=== PATIENT | male | born 1945 | race Caucasian/White ===

== ENCOUNTER 2020-07-24 15:24 | Inpatient (IN) | payer MEDICARE, OTHER ==
[2020-07-24 16:22] LABS: Basophils # (A) 0.1 k/uL (0-0.2); Basophils % (A) 1 %; Eosinophils # (A) 0.2 k/uL (0-0.7); Eosinophils % (A) 2 %; HCT 47.4 % (39.0-53.0); HGB 15.9 gm/dL (13.0-17.5); Lymphocytes # (A) 1.2 k/uL (1.0-4.8); Lymphocytes % (A) 12 %; MCH 30.5 pg (25.0-35.0); MCHC 33.6 g/dL (31.0-37.0); MCV 90.6 fL (80.0-100.0); Mean Platelet Volume 7.4; Monocytes # (A) 0.6 k/uL (0-1.0); Monocytes % (A) 6 %; Neutrophils % (A) 78 %; Platelet Count 230 k/uL (150-450); RBC 5.23 m/uL (4.30-5.90); RDW 12.8 % (11.5-15.5); WBC 10.3 k/uL (3.8-10.6)
[2020-07-24 16:30] LABS: Potassium 3.9 mmol/L (3.5-5.1)
[2020-07-24 16:31] LABS: ALT 31 U/L (4-49); AST 40 U/L (17-59); African American GFR (CKD) >90 (>60 ml/min/1.73 sqM); Albumin 4.9 g/dL (3.5-5.0); Alkaline Phosphatase 60 U/L (38-126); Anion Gap 12 mmol/L; Blood Urea Nitrogen 35 mg/dL (9-20); Calcium 9.3 mg/dL (8.4-10.2); Carbon Dioxide 25 mmol/L (22-30); Chloride 103 mmol/L (98-107); Glucose 189 mg/dL (74-99); Non-African American GFR(CKD) 79 (>60 ml/min/1.73 sqM); Partial Thromboplastin Time 24.8 sec (22.0-30.0); Prothrombin Time 10.7 sec (9.0-12.0); Sodium 140 mmol/L (137-145); Total Protein 7.6 g/dL (6.3-8.2)
--- NOTE | 2020-07-24 16:50 | ED ---
Psych HPI - General Chief Complaint: Psychiatric Symptoms Stated Complaint: Hallucinations Time Seen by Provider: 07/24/20 15:42 Source: patient, family Mode of arrival: ambulatory - History of Present Illness Initial Comments: Patient is a 75-year-old male, with history of hypertension, presenting to the emergency department with his daughter over complaints of hallucinations. Patient states that he called the social services several times yesterday and again today because he was seeing people in his house. Patient states that there was other individuals "drinking things in his house and also laying in his bed up." Police investigated each time and there was nobody else in the household. Patient mentioned an ex-girlfriend who has been "giving him some trouble." He would not elaborate on this. He denies any suicidal or homicidal thoughts. He admits to occasional alcohol use, marijuana use, no other drug use. Her daughter states that he has never had this issue in the past. Denies any new medications. Denies any falls or trauma. There are no further complaints at t his time. Upon arrival to the ER, his vital signs are stable. - Related Data Home Medications Medication Instructions Recorded Confirmed Cider Vinegar [Apple Cider Vinegar] 600 mg PO DAILY 07/24/20 07/24/20 Garcinia Cambogia (Unknown 1 tab PO DAILY 07/24/20 07/24/20 Strength) Levothyroxine Sodium [Synthroid] 50 mcg PO DAILY 07/24/20 07/24/20 Metoprolol Tartrate [Lopressor] 25 mg PO BID 07/24/20 07/24/20 Multivit-Min/Folic/Vit K/Lycop 1 tab PO DAILY 07/24/20 07/24/20 [Men's Multivitamin Tablet] Prostagenix (Unknown Strength) 1 tab PO DAILY 07/24/20 07/24/20 amLODIPine BESYLATE 10 mg PO DAILY 07/24/20 07/24/20 Allergies Allergy/AdvReac Type Severity Reaction Status Date / Time No Known Allergies Allergy Verified 07/24/20 18:35 Review of Systems ROS Statement: Those systems with pertinent positive or pertinent negative responses have been documented in the HPI. ROS Other: All systems not noted in ROS Statement are negative. Past Medical History Past Medical History: No Reported History, Hypertension History of Any Multi-Drug Resistant Organisms: None Reported Past Surgical History: Orthopedic Surgery Additional Past Surgical History / Comment(s): hip replacement. Smoking Status: Never smoker Past Alcohol Use History: Rare Past Drug Use History: Marijuana General Exam - General Exam Comments Initial Comments: GENERAL: Patient is well-developed and well-nourished. Patient is nontoxic and in no acute distress. HEAD: Atraumatic, normocephalic. EYES: Pupils equal round and reactive to light, extraocular movements intact, sclera anicteric, conjunctiva are normal. Eyelids were unremarkable. ENT: TMs normal, nares patent, oropharynx clear without exudates. Moist mucous membranes. NECK: Normal range of motion, supple without lymphadenopathy or JVD. LUNGS: Unlabored respirations. Breath sounds clear to auscultation bilaterally and equal. No wheezes rales or rhonchi. HEART: Regular rate and rhythm without murmurs, rubs or gallops. ABDOMEN: Soft, nontender, normoactive bowel sounds. No guarding, no rebound. No masses appreciated. : Deferred MUSCULOSKELETAL: Normal extremities with adequate strength and normal range of motion, no pitting or edema. No clubbing or cyanosis. NEUROLOGICAL: Patient is alert and oriented x 3. Motor and sensory are also intact. Cranial nerves II through XII grossly intact. Symmetrical smile. Normal speech, normal gait. PSYCH: Normal mood, normal affect. SKIN: Warm, Dry, normal turgor, no rashes or lesions noted. Limitations: no limitations Course Vital Signs 07/24/20 15:25 Temperature 97.9 F Pulse Rate 88 Respiratory 18 Rate Blood Pressure 148/80 O2 Sat by Pulse 97 Oximetry - Reevaluation(s) Reevaluation #1: 07/24/20 19:30 Patient was cleared for psych evaluation after reviewing labs and CT which were normal. Patient was handed over to Dr. Olson at shift change. Patient awaiting psych evaluation. Medical Decision Making - Medical Decision Making Patient is a 75-year-old male presenting with his daughter for a psychiatric evaluation. He should call the police several times over the last 24 hours because he was seeing people in his house. Upon investigation there was nobody in his house. Patient denies any suicidal or homicidal thoughts. He has never had this issue in the past. Patient's exam is unremarkable, no acute neuro deficits. He is alert and oriented, he does not appear to be altered. He has no other specific complaints today. Patient's lab work shows no acute abnormalities, troponin is normal. Urine shows rare bacteria, no other abnormal findings. Urine tox screen is positive for marijuana which she did admit to, amphetamines, patient's daughter states that he could've got those from another family member who takes Adderall. Rapid Covid is not detected. CT of the head shows no acute process. Patient was cleared for psych evaluation. It is recommended that patient be admitted as inpatient psych. - Lab Data Result diagrams: 07/24/20 16:14 07/24/20 16:14 Lab Results 07/24/20 07/24/20 07/24/20 Range/Units 16:14 16:14 16:14 WBC 10.3 (3.8-10.6) k/uL RBC 5.23 (4.30-5.90) m/uL Hgb 15.9 (13.0-17.5) gm/dL Hct 47.4 (39.0-53.0) % MCV 90.6 (80.0-100.0) fL MCH 30.5 (25.0-35.0) pg MCHC 33.6 (31.0-37.0) g/dL RDW 12.8 (11.5-15.5) % Plt Count 230 (150-450) k/uL MPV 7.4 Neutrophils % 78 % Lymphocytes % 12 % Monocytes % 6 % Eosinophils % 2 % Basophils % 1 % Neutrophils # 8.0 H (1.3-7.7) k/uL Lymphocytes # 1.2 (1.0-4.8) k/uL Monocytes # 0.6 (0-1.0) k/uL Eosinophils # 0.2 (0-0.7) k/uL Basophils # 0.1 (0-0.2) k/uL PT 10.7 (9.0-12.0) sec INR 1.0 (<1.2) APTT 24.8 (22.0-30.0) sec Sodium 140 (137-145) mmol/L Potassium 3.9 (3.5-5.1) mmol/L Chloride 103 (98-107) mmol/L Carbon Dioxide 25 (22-30) mmol/L Anion Gap 12 mmol/L BUN 35 H (9-20) mg/dL Creatinine 0.96 (0.66-1.25) mg/dL Est GFR (CKD-EPI)AfAm >90 (>60 ml/min/1.73 sqM) Est GFR (CKD-EPI)NonAf 79 (>60 ml/min/1.73 sqM) Glucose 189 H (74-99) mg/dL Estimated Ave Glu mg/dL Hemoglobin A1c (4.0-6.0) % Plasma Lactic Acid Gold (0.7-2.0) mmol/L Calcium 9.3 (8.4-10.2) mg/dL Total Bilirubin 1.0 (0.2-1.3) mg/dL AST 40 (17-59) U/L ALT 31 (4-49) U/L Alkaline Phosphatase 60 (38-126) U/L Troponin I (0.000-0.034) ng/mL Total Protein 7.6 (6.3-8.2) g/dL Albumin 4.9 (3.5-5.0) g/dL TSH (0.465-4.680) mIU/L Urine Color Urine Appearance (Clear) Urine pH (5.0-8.0) Ur Specific [place] (1.001-1.035) Urine Protein (Negative) Urine Glucose (UA) (Negative) Urine Ketones (Negative) Urine Blood (Negative) Urine Nitrite (Negative) Urine Bilirubin (Negative) Urine Urobilinogen (<2.0) mg/dL Ur Leukocyte Esterase (Negative) Urine RBC (0-5) /hpf Urine WBC (0-5) /hpf Ur Squamous Epith Cells (0-4) /hpf Urine Bacteria (None) /hpf Urine Mucus (None) /hpf Urine Opiates Screen (NotDetected) Ur Oxycodone Screen (NotDetected) Urine Methadone Screen (NotDetected) Ur Propoxyphene Screen (NotDetected) Ur Barbiturates Screen (NotDetected) U Tricyclic Antidepress (NotDetected) Ur Phencyclidine Scrn (NotDetected) Ur Amphetamines Screen (NotDetected) U Methamphetamines Scrn (NotDetected) U Benzodiazepines Scrn (NotDetected) Urine Cocaine Screen (NotDetected) U Marijuana (THC) Screen (NotDetected) Coronavirus (PCR) (Not Detectd) 03/06/1507/24/20 07/24/20 Range/Units 16:14 16:14 16:14 WBC (3.8-10.6) k/uL RBC (4.30-5.90) m/uL Hgb (13.0-17.5) gm/dL Hct (39.0-53.0) % MCV (80.0-100.0) fL MCH (25.0-35.0) pg MCHC (31.0-37.0) g/dL RDW (11.5-15.5) % Plt Count (150-450) k/uL MPV Neutrophils % % Lymphocytes % % Monocytes % % Eosinophils % % Basophils % % Neutrophils # (1.3-7.7) k/uL Lymphocytes # (1.0-4.8) k/uL Monocytes # (0-1.0) k/uL Eosinophils # (0-0.7) k/uL Basophils # (0-0.2) k/uL PT (9.0-12.0) sec INR (<1.2) APTT (22.0-30.0) sec Sodium (137-145) mmol/L Potassium (3.5-5.1) mmol/L Chloride (98-107) mmol/L Carbon Dioxide (22-30) mmol/L Anion Gap mmol/L BUN (9-20) mg/dL Creatinine (0.66-1.25) mg/dL Est GFR (CKD-EPI)AfAm (>60 ml/min/1.73 sqM) Est GFR (CKD-EPI)NonAf (>60 ml/min/1.73 sqM) Glucose (74-99) mg/dL Estimated Ave Glu mg/dL Hemoglobin A1c (4.0-6.0) % Plasma Lactic Acid Gold 1.7 (0.7-2.0) mmol/L Calcium (8.4-10.2) mg/dL Total Bilirubin (0.2-1.3) mg/dL AST (17-59) U/L ALT (4-49) U/L Alkaline Phosphatase (38-126) U/L Troponin I <0.012 (0.000-0.034) ng/mL Total Protein (6.3-8.2) g/dL Albumin (3.5-5.0) g/dL TSH 4.050 (0.465-4.680) mIU/L Urine Color Urine Appearance (Clear) Urine pH (5.0-8.0) Ur Specific [place] (1.001-1.035) Urine Protein (Negative) Urine Glucose (UA) (Negative) Urine Ketones (Negative) Urine Blood (Negative) Urine Nitrite (Negative) Urine Bilirubin (Negative) Urine Urobilinogen (<2.0) mg/dL Ur Leukocyte Esterase (Negative) Urine RBC (0-5) /hpf Urine WBC (0-5) /hpf Ur Squamous Epith Cells (0-4) /hpf Urine Bacteria (None) /hpf Urine Mucus (None) /hpf Urine Opiates Screen (NotDetected) Ur Oxycodone Screen (NotDetected) Urine Methadone Screen (NotDetected) Ur Propoxyphene Screen (NotDetected) Ur Barbiturates Screen (NotDetected) U Tricyclic Antidepress (NotDetected) Ur Phencyclidine Scrn (NotDetected) Ur Amphetamines Screen (NotDetected) U Methamphetamines Scrn (NotDetected) U Benzodiazepines Scrn (NotDetected) Urine Cocaine Screen (NotDetected) U Marijuana (THC) Screen (NotDetected) Coronavirus (PCR) (Not Detectd) 07/24/20 07/24/20 07/24/20 Range/Units 16:14 16:24 17:27 WBC (3.8-10.6) k/uL RBC (4.30-5.90) m/uL Hgb (13.0-17.5) gm/dL Hct (39.0-53.0) % MCV (80.0-100.0) fL MCH (25.0-35.0) pg MCHC (31.0-37.0) g/dL RDW (11.5-15.5) % Plt Count (150-450) k/uL MPV Neutrophils % % Lymphocytes % % Monocytes % % Eosinophils % % Basophils % % Neutrophils # (1.3-7.7) k/uL Lymphocytes # (1.0-4.8) k/uL Monocytes # (0-1.0) k/uL Eosinophils # (0-0.7) k/uL Basophils # (0-0.2) k/uL PT (9.0-12.0) sec INR (<1.2) APTT (22.0-30.0) sec Sodium (137-145) mmol/L Potassium (3.5-5.1) mmol/L Chloride (98-107) mmol/L Carbon Dioxide (22-30) mmol/L Anion Gap mmol/L BUN (9-20) mg/dL Creatinine (0.66-1.25) mg/dL Est GFR (CKD-EPI)AfAm (>60 ml/min/1.73 sqM) Est GFR (CKD-EPI)NonAf (>60 ml/min/1.73 sqM) Glucose (74-99) mg/dL Estimated Ave Glu mg/dL 126 Hemoglobin A1c 6.0 (4.0-6.0) % Plasma Lactic Acid Gold (0.7-2.0) mmol/L Calcium (8.4-10.2) mg/dL Total Bilirubin (0.2-1.3) mg/dL AST (17-59) U/L ALT (4-49) U/L Alkaline Phosphatase (38-126) U/L Troponin I (0.000-0.034) ng/mL Total Protein (6.3-8.2) g/dL Albumin (3.5-5.0) g/dL TSH (0.465-4.680) mIU/L Urine Color Yellow Urine Appearance Clear (Clear) Urine pH 5.0 (5.0-8.0) Ur Specific [place] 1.031 (1.001-1.035) Urine Protein Trace H (Negative) Urine Glucose (UA) Negative (Negative) Urine Ketones Negative (Negative) Urine Blood Negative (Negative) Urine Nitrite Negative (Negative) Urine Bilirubin Negative (Negative) Urine Urobilinogen <2.0 (<2.0) mg/dL Ur Leukocyte Esterase Trace H (Negative) Urine RBC 1 (0-5) /hpf Urine WBC 2 (0-5) /hpf Ur Squamous Epith Cells 2 (0-4) /hpf Urine Bacteria Rare H (None) /hpf Urine Mucus Many H (None) /hpf Urine Opiates Screen Not Detected (NotDetected) Ur Oxycodone Screen Not Detected (NotDetected) Urine Methadone Screen Not Detected (NotDetected) Ur Propoxyphene Screen Not Detected (NotDetected) Ur Barbiturates Screen Not Detected (NotDetected) U Tricyclic Antidepress Not Detected (NotDetected) Ur Phencyclidine Scrn Not Detected (NotDetected) Ur Amphetamines Screen Detected H (NotDetected) U Methamphetamines Scrn Not Detected (NotDetected) U Benzodiazepines Scrn Not Detected (NotDetected) Urine Cocaine Screen Not Detected (NotDetected) U Marijuana (THC) Screen Detected H (NotDetected) Coronavirus (PCR) Not Detected (Not Detectd) - EKG Data EKG Comments: Sinus rhythm with PAC's, some T-wave inversions in V3, V4 and V5. No previous EKGs to compare to. No signs of an acute ischemia process. Ventricular rate 62, MS interval 134, QT 426. Disposition Clinical Impression: Acute psychosis Disposition: TRANSFER TO PSYCH HOSP/UNIT Condition: Stable
--- NOTE | 2020-07-24 17:40 | CT ---
EXAMINATION TYPE: CT brain wo con DATE OF EXAM: 07/24/2020 COMPARISON: None HISTORY: weakness and hallucinations. CT DLP: 1102.4 mGycm Automated exposure control for dose reduction was used. There is cerebral cortical atrophy. There is no mass effect nor midline shift. There is no sign of in tracranial hemorrhage. Calvarium is intact. There is no evidence of cerebral edema. Skull base is int act. IMPRESSION: Cerebral atrophy. No acute intracranial abnormality.
[2020-07-24 18:10] LABS: Appearance,Urine Clear (Clear); Bacteria,Urine Rare /hpf; Bilirubin,Urine Negative (Negative); Blood,Urine Negative (Negative); Color,Urine Yellow; Glucose,Urine (UA) Negative (Negative); Ketones,Urine Negative (Negative); Leukocyte Esterase,Urine Trace (Negative); Mucus,Urine Many /hpf; Nitrite,Urine Negative (Negative); Protein,Urine Trace (Negative); RBC,Urine 1 /hpf (0-5); Specific Gravity,Urine 1.031 (1.001-1.035); Squamous Epithelial Cell,Urine 2 /hpf (0-4); Urobilinogen,Urine <2.0 mg/dL (<2.0); WBC,Urine 2 /hpf (0-5)
[2020-07-24 18:13] LABS: Amphetamine Screen,Urine Detected (NotDetected); Barbiturate Screen,Urine Not Detected (NotDetected); Benzodiazepines Screen,Urine Not Detected (NotDetected); Cocaine Screen,Urine Not Detected (NotDetected); Methadone Screen, Urine Not Detected (NotDetected); Opiate Screen,Urine Not Detected (NotDetected); Oxycodone Screen, Urine Not Detected (NotDetected); Phencyclidine Screen,Urine Not Detected (NotDetected); Tricyclic Antidepressant,Urine Not Detected (NotDetected); Urn Cannabinoid Scrn Detected (NotDetected)
[2020-07-24] MEDS ORDERED: MAGNESIUM HYDROXIDE 2,400 MG/10 ML CUP PO PRN (22:27)
[2020-07-24] MEDS ORDERED: LORazepam 1 MG TAB PO PRN (22:27)
[2020-07-24] MEDS ORDERED: MAG HYDROX/AL HYDROX/SIMETH 30 ML CUP PO PRN (22:27)
[2020-07-24] MEDS ORDERED: ACETAMINOPHEN TAB 325 MG TAB PO PRN (22:27)
[2020-07-24] MEDS ORDERED: HALOPERIDOL LACTATE 5 MG/ML 1 ML VIAL IM PRN (22:35)
[2020-07-24] MEDS ORDERED: LORazepam 2 MG/ML INJ IM PRN (22:35)
[2020-07-24] MEDS ORDERED: haloperidoL 1 MG TAB PO PRN (22:35)
[2020-07-25] MEDS: LEVOTHYROXINE 50 MCG TAB PO SCH (06:20)
[2020-07-25] MEDS: METOPROLOL TARTRATE 25 MG TAB PO SCH ×2 (08:46→21:42)
[2020-07-25] MEDS: MULTIVITAMINS, THERA 1 EACH TAB PO SCH (08:46)
[2020-07-25] MEDS: amLODIPine 10 MG TAB PO SCH (08:46)
--- NOTE | 2020-07-25 11:04 | P.HP ---
Psychiatric H&P - . H&P Date: 07/25/20 History & Physical: Allergies Allergy/AdvReac Type Severity Reaction Status Date / Time No Known Allergies Allergy Verified 07/24/20 18:35 Vital Signs Temp 97.5 F L 07/24/20 23:52 Pulse 70 07/24/20 23:52 Resp 20 07/24/20 23:52 BP 138/88 07/24/20 23:52 Pulse Ox 95 07/24/20 23:52 Intake & Output 07/24/20 07/25/20 07/25/20 18:59 06:59 18:59 Weight 90.718 kg 95.254 kg Laboratory Last Values WBC 10.3 k/uL (3.8-10.6) 07/24/20 16:14 RBC 5.23 m/uL (4.30-5.90) 07/24/20 16:14 Hgb 15.9 gm/dL (13.0-17.5) 07/24/20 16:14 Hct 47.4 % (39.0-53.0) 07/24/20 16:14 MCV 90.6 fL (80.0-100.0) 07/24/20 16:14 MCH 30.5 pg (25.0-35.0) 07/24/20 16:14 MCHC 33.6 g/dL (31.0-37.0) 07/24/20 16:14 RDW 12.8 % (11.5-15.5) 07/24/20 16:14 Plt Count 230 k/uL (150-450) 07/24/20 16:14 MPV 7.4 07/24/20 16:14 Neutrophils % 78 % 07/24/20 16:14 Lymphocytes % 12 % 07/24/20 16:14 Monocytes % 6 % 07/24/20 16:14 Eosinophils % 2 % 07/24/20 16:14 Basophils % 1 % 07/24/20 16:14 Neutrophils # 8.0 k/uL (1.3-7.7) H 07/24/20 16:14 Lymphocytes # 1.2 k/uL (1.0-4.8) 07/24/20 16:14 Monocytes # 0.6 k/uL (0-1.0) 07/24/20 16:14 Eosinophils # 0.2 k/uL (0-0.7) 07/24/20 16:14 Basophils # 0.1 k/uL (0-0.2) 07/24/20 16:14 PT 10.7 sec (9.0-12.0) 07/24/20 16:14 INR 1.0 (<1.2) 07/24/20 16:14 APTT 24.8 sec (22.0-30.0) 07/24/20 16:14 Sodium 140 mmol/L (137-145) 07/24/20 16:14 Potassium 3.9 mmol/L (3.5-5.1) 07/24/20 16:14 Chloride 103 mmol/L (98-107) 07/24/20 16:14 Carbon Dioxide 25 mmol/L (22-30) 07/24/20 16:14 Anion Gap 12 mmol/L 07/24/20 16:14 BUN 35 mg/dL (9-20) H 07/24/20 16:14 Creatinine 0.96 mg/dL (0.66-1.25) 07/24/20 16:14 Est GFR (CKD-EPI)AfAm >90 (>60 ml/min/1.73 sqM) 07/24/20 16:14 Est GFR (CKD-EPI)NonAf 79 (>60 ml/min/1.73 sqM) 07/24/20 16:14 Glucose 189 mg/dL (74-99) H 07/24/20 16:14 Plasma Lactic Acid Gold 1.7 mmol/L (0.7-2.0) 07/24/20 16:14 Calcium 9.3 mg/dL (8.4-10.2) 07/24/20 16:14 Total Bilirubin 1.0 mg/dL (0.2-1.3) 07/24/20 16:14 AST 40 U/L (17-59) 07/24/20 16:14 ALT 31 U/L (4-49) 07/24/20 16:14 Alkaline Phosphatase 60 U/L (38-126) 07/24/20 16:14 Troponin I <0.012 ng/mL (0.000-0.034) 07/24/20 16:14 Total Protein 7.6 g/dL (6.3-8.2) 07/24/20 16:14 Albumin 4.9 g/dL (3.5-5.0) 07/24/20 16:14 Urine Color Yellow 07/24/20 17:27 Urine Appearance Clear (Clear) 07/24/20 17: Urine pH 5.0 (5.0-8.0) 07/24/20 17:27 Ur Specific [place] 1.031 (1.001-1.035) 07/24/20 17:27 Urine Protein Trace (Negative) H 07/24/20 17:27 Urine Glucose (UA) Negative (Negative) 07/24/20 17: Urine Ketones Negative (Negative) 07/24/20 17: Urine Blood Negative (Negative) 07/24/20 17: Urine Nitrite Negative (Negative) 07/24/20 17: Urine Bilirubin Negative (Negative) 07/24/20 17: Urine Urobilinogen <2.0 mg/dL (<2.0) 07/24/20 17:27 Ur Leukocyte Esterase Trace (Negative) H 07/24/20 17:27 Urine RBC 1 /hpf (0-5) 07/24/20 17:27 Urine WBC 2 /hpf (0-5) 07/24/20 17:27 Ur Squamous Epith Cells 2 /hpf (0-4) 07/24/20 17:27 Urine Bacteria Rare /hpf (None) H 07/24/20 17:27 Urine Mucus Many /hpf (None) H 07/24/20 17:27 Urine Opiates Screen Not Detected (NotDetected) 07/24/20 17:27 Ur Oxycodone Screen Not Detected (NotDetected) 07/24/20 17:27 Urine Methadone Screen Not Detected (NotDetected) 07/24/20 17:27 Ur Propoxyphene Screen Not Detected (NotDetected) 07/24/20 17:27 Ur Barbiturates Screen Not Detected (NotDetected) 07/24/20 17:27 U Tricyclic Antidepress Not Detected (NotDetected) 07/24/20 17:27 Ur Phencyclidine Scrn Not Detected (NotDetected) 07/24/20 17:27 Ur Amphetamines Screen Detected (NotDetected) H 07/24/20 17:27 U Methamphetamines Scrn Not Detected (NotDetected) 07/24/20 17:27 U Benzodiazepines Scrn Not Detected (NotDetected) 07/24/20 17:27 Urine Cocaine Screen Not Detected (NotDetected) 07/24/20 17:27 U Marijuana (THC) Screen Detected (NotDetected) H 07/24/20 17:27 Coronavirus (PCR) Not Detected (Not Detectd) 07/24/20 16:24 07/25/20 10:11 IDENTIFYING DATA: Patient is a 75-year-old male who currently lives alone in a mobile home is has 4 kids and is a retired project development engineer for [employer] HPI: Patient presented to the hospital yesterday with his daughter for complaints of hallucinations. According the ER report patient had stated that he had been seeing people in the house "drinking things and laying in the bed". Patient had apparently called the police several times to the house to find that nobody was there. Patient had a computed tomography scan of his head which was negative. Patient also had a UDS which was positive for marijuana and amphetamines. Patient was seen today on the unit and agreeable to speak to financial writer. Patient spoke about his daughter being "upset and worried at me". He claimed that she wanted him to get checked out for his hallucinations. Patient states that the police came multiple times to his house and didn't see anybody there. He states that there was "people cooking dope in the kitchen" and stated that he could actually touch them. He states that there is approximately 8 of them in the house and believes that his ex-girlfriend "probably brought them over". He states that his mood is "fine" and denies any depression or anxiety at this time. He was fairly evasive and guarded about the hallucinations and his reason for being in the hospital. He was focused on discharge. He states his appetite is fair and sleeps approximately 4 hours a night. He was alert and oriented 3 however had poor concentration during the interview. Patient denies any current suicidal or homicidal ideations intent or plan. At this time patient denies any current auditory or visual hallucinations. Patient denies any flight of ideas racing thoughts and increased in goal directed behavior. Patient admits to using marijuana daily approximately 1-2 joints per day. He states that he drinks alcohol occasionally. He claims that he had taken his son's ADHD medications however did not state how many times. PAST PSYCHIATRIC HISTORY: Patient states that he has no psychiatric history. Patient denies being on any psychiatric medications. Patient denies any previous psychiatric hospitalizations. Patient denies any psychiatric outpatient follow- up. Patient denies any history of suicide attempts in the past. PMH:Hypertension and osteoarthritis ALLERGIES: as per EMR CHEMICAL DEPENDENCY HISTORY: as per HPI FAMILY PSYCHIATRIC/SUBSTANCE USE HISTORY: His son has ADHD SOCIAL HISTORY: Patient was born in [facility] and currently lives in [place]. He states that he has 4 kids is currently and lives in a mobile home alone. He states that he used to work as an project development engineer for [employer] however is now retired. He states that he completed 2 college degrees in the past. He states that he did go to long-term briefly for possession of marijuana. He denies any history. MENTAL STATUS EXAM: General Appearance: Patient appears to be overweight, elderly with long hair, is alert, guarded/evasive at times. Patient appears to have poor hygiene and grooming. Behavior: Patient is seated without any agitated behavior. Guarded/evasive. Speech: Patient's speech is fluent and nonpressured. Mood/Affect: Patient reports their mood is "okay", affect is congruent and constricted. Suicidality/Homicidality: Patient denies having any homicidal ideation intent or plan. Denies any suicidal ideations intent or plan Perceptions: Patient denies any current visual hallucinations and denies any auditory hallucinations Though content/process: Bizarre content at times, guarded/evasive. Rambles. Memory and concentration: AOX2-3, poor concentration. Can spell "WORLD" backwards. 2 out of 3 memory recall after 5 minutes. Judgment and insight: poor STRENGTHS/WEAKNESSES: strength is that patient is resilient. Weakness is that patient has poor judgment and insight INTELLECT: average IMPRESSIONS: Psychosis unspecified, rule out secondary to neurological disorder i.e. P arkinson's or Lewy body dementia vs. substance induced psychosis Cannabis use disorder Stimulant abuse PLAN: -Patient is admitted under voluntary status to MHU for stabilization of psychiatric symptoms and safety. Patient has signed adult voluntary form and and is placed in patient's chart. Patient refused to sign for medication consent. -Medications : Will start patient on Seroquel 25 mg daily at bedtime for psychosis/hallucinations. -Haldol PRN for agitation/aggression -Patient was counselled on substance abuse however patient did not want to cut back on his marijuana use -Patient was informed of the risks, benefits and side effects of the medication and patient verbally understood. -Internal Medicine consult to perform medical evaluation and physical. -NRT - not needed as patient does not smoke -SW on board for discharge planning. Encourage patient to participate in groups to work on coping skills.
--- NOTE | 2020-07-25 18:15 | P.HPIM ---
History of Present Illness H&P Date: 07/25/20 Leandro Lujan, is a 75-year-old male patient of Dr. Chapa, who presented to [facility] emergency room due to psychosis with hallucinations. He was evaluated in the emergency room and was admitted to the psychiatry unit. Medical consultation was requested for management while hospitalized. Urine toxicology screen in the emergency room was positive for marijuana and amphetamines. His past medical history is significant for history of hypertension, history of hypothyroidism, history of degenerative disc disease with history of neck fusion C5 C6 C7, history of COPD patient stated that he use to smoke but quit 10 years ago he uses a nebulizer at home. On review of systems at this time patient is alert and oriented 3 in no distress there is no fever or chills no headache or dizziness no chest pain no shortness of breath no cough no nausea or vomiting no abdominal pain no diarrhea no blood in the stools no burning with urination no frequency or urgency and no hematuria. Past Medical History Past Medical History: Hypertension, Thyroid Disorder Additional Past Medical History / Comment(s): Chronic back pain History of Any Multi-Drug Resistant Organisms: None Reported Past Surgical History: Orthopedic Surgery Additional Past Surgical History / Comment(s): hip replacement. Knee L replacement Past Anesthesia/Blood Transfusion Reactions: No Reported Reaction Smoking Status: Never smoker Medications and Allergies Home Medications Medication Instructions Recorded Confirmed Type Cider Vinegar [Apple Cider Vinegar] 600 mg PO DAILY 07/24/20 07/24/20 History Garcinia Cambogia (Unknown 1 tab PO DAILY 07/24/20 07/24/20 History Strength) Levothyroxine Sodium [Synthroid] 50 mcg PO DAILY 07/24/20 07/24/20 History Metoprolol Tartrate [Lopressor] 25 mg PO BID 07/24/20 07/24/20 History Multivit-Min/Folic/Vit K/Lycop 1 tab PO DAILY 07/24/20 07/24/20 History [Men's Multivitamin Tablet] Prostagenix (Unknown Strength) 1 tab PO DAILY 07/24/20 07/24/20 History amLODIPine BESYLATE 10 mg PO DAILY 07/24/20 07/24/20 History Allergies Allergy/AdvReac Type Severity Reaction Status Date / Time No Known Allergies Allergy Verified 07/24/20 18:35 Physical Exam Vitals: Vital Signs Temp Pulse Pulse Resp BP BP Pulse Ox 07/24/20 23:52 97.5 F L 70 20 138/88 95 07/24/20 15:25 97.9 F 88 18 148/80 97 Intake and Output 07/24/20 07/25/20 07/25/20 22:59 06:59 14:59 Other: Weight 90.718 kg 95.254 kg In general patient is alert and oriented 3 in no apparent distress HEENT head normocephalic and atraumatic Neck is supple no JVD no goiter no lymphadenopathy Chest exam reveals a scattered crackles bilaterally no wheezing Cardiac exam reveals regular heart sounds S1 and S2 no gallops no murmurs Abdomen is soft nontender no organomegaly with normal bowel sounds Extremity exam reveals no edema no cyanosis or clubbing Neurological examination reveals no gross focal deficit Results CBC & Chem 7: 07/24/20 16:14 07/24/20 16:14 Labs: Abnormal Lab Results - Last 24 Hours (Table) 07/24/20 07/24/20 07/24/20 Range/Units 16:14 16:14 17:27 Neutrophils # 8.0 H (1.3-7.7) k/uL BUN 35 H (9-20) mg/dL Glucose 189 H (74-99) mg/dL Urine Protein Trace H (Negative) Ur Leukocyte Esterase Trace H (Negative) Urine Bacteria Rare H (None) /hpf Urine Mucus Many H (None) /hpf Ur Amphetamines Screen Detected H (NotDetected) U Marijuana (THC) Screen Detected H (NotDetected) Thrombosis Risk Factor Assmnt - Choose All That Apply Each Risk Factor Represents 2 Points: Age 61-74 years Thrombosis Risk Factor Assessment Total Risk Factor Score: 2 Thrombosis Risk Factor Assessment Level: Low Risk Assessment and Plan Plan: 1. Psychosis with hallucinations, management per primary psychiatry team, patient currently is on haloperidol and Seroquel 2. Underlying history of hypertension, blood pressure with borderline control, will monitor and adjust medications if needed 3. Underlying history of hypothyroidism maintained on Synthroid 50 g daily continue, will check TSH 4. Elevated glucose level on presentation at 189, no history of diabetes will check hemoglobin A1c 5. Urine toxicology screen on presentation positive for amphetamine and marijuana, patient states that he smokes marijuana, and that one of his friends gave him a pill of Aldaral, he was counseled in regard to avoiding taking any pills from anybody. 6. History of COPD patient stated that he has a nebulizer at home, will order DuoNeb updraft as needed only for shortness of breath or wheezing. Home medications reviewed and reordered TSH and hemoglobin A1c are ordered Will follow during this admission for medical management
[2020-07-25] MEDS ORDERED: IPRATROPIUM-ALBUTEROL 3 ML NEB INHALATION PRN (18:16)
[2020-07-25] MEDS ORDERED: QUEtiapine 25 MG TAB PO SCH (21:00)
[2020-07-26] MEDS: LEVOTHYROXINE 50 MCG TAB PO SCH (06:12)
[2020-07-26] MEDS: amLODIPine 10 MG TAB PO SCH (08:03)
[2020-07-26] MEDS: MULTIVITAMINS, THERA 1 EACH TAB PO SCH (08:03)
[2020-07-26] MEDS: METOPROLOL TARTRATE 25 MG TAB PO SCH ×2 (08:04→21:16)
--- NOTE | 2020-07-26 09:25 | P.PN ---
Progress Note - Text Progress Note Date: 07/26/20 Interval History: Patient was seen lying in his bed today and was directable and agreeable to sp jcarlos with ghost writer in the office. Patient claims that he was "tossing and turning" last night and claims that he did not sleep well. He also asked about seeing the "dividers come down" in the room in the middle of the night. She states that he has not been seeing any other strange people and denies any paranoia at this time. He claims that his mood has been "the same" and denies any depression or anxiety today. He states that he did try to go to 1 group yesterday however did not like going and states that "I have nothing to share with them". Today he appears to be mildly more cooperative and less irritable with ghost writer. He states that he is eating fairly however continues to have a low appetite and spoke with his daughter over the phone who he claims is going to his house to "clean it up a bit". At this time patient denies any suicidal or homical ideations, intent or plan. Patient denies any auditory, visual hallucinations. Mental Status Exam: General Appearance: Patient appears to be overweight, elderly with long hair, is alert, mildly more cooperative today. Patient appears to have improving hygiene and grooming. Behavior: Patient is seated without any agitated behavior. More cooperative today Speech: Patient's speech is fluent and nonpressured. Mood/Affect: Patient reports their mood is "the same", affect is congruent and constricted. Suicidality/Homicidality: Patient denies having any homicidal ideation intent or plan. Denies any suicidal ideations intent or plan Perceptions: Patient denies any current visual hallucinations and denies any auditory hallucinations. He did mention however that the "dividers came down" in the middle of the night in his room. Though content/process: More logical and goal oriented. Rambles. Memory and concentration: AOX2-3, improving concentration. Judgment and insight: poor, improving mildly Assessment Psychosis unspecified, rule out secondary to neurological disorder i.e. Parkinson's or Lewy body dementia vs. substance induced psychosis Cannabis use disorder Stimulant abuse Plan: -Patient continues to meet criteria for inpatient psychiatric admission for symptom stabilization and safety. Patient has signed adult voluntary form consent and was placed in patient's chart. -Medications: Increase Seroquel to 50 mg daily at bedtime for psychosis/hallucinations. -When necessary Ativan and Haldol for agitation/aggression. -NRT - not needed as patient does not smoke -SW on board for discharge planning. Encouraged the patient to participate in milieu. We'll prepare for possible discharge tomorrow if patient does well overnight.
[2020-07-26] MEDS ORDERED: QUEtiapine 50 MG TAB PO SCH (21:00)
[2020-07-27] MEDS: LEVOTHYROXINE 50 MCG TAB PO SCH (06:15)
[2020-07-27 06:32] VITALS: TEMP 97.9
[2020-07-27] MEDS: METOPROLOL TARTRATE 25 MG TAB PO SCH (09:05)
[2020-07-27] MEDS: amLODIPine 10 MG TAB PO SCH (09:05)
[2020-07-27] MEDS: MULTIVITAMINS, THERA 1 EACH TAB PO SCH (09:05)
[2020-07-27 09:08] VITALS: BP 135/86; PULSE 68; RESP 20
--- NOTE | 2020-07-27 09:40 | P.DS ---
Providers Date of admission: 07/24/20 22:02 Expected date of discharge: 07/27/20 Attending physician: Sebas Marinelli MD Consults: 07/24/20 22:27 Consult Physician Routine Consulting Provider: Evin Martinez Consult Reason/Comments: H&P and medical Do you want consulting provider notified?: Yes Primary care physician: Chastity Chapa - Discharge Diagnosis(es) (1) Unspecified psychosis Current Visit: Yes Status: Acute Priority: High (2) Cannabis use disorder, mild, abuse Current Visit: Yes Status: Acute Priority: Medium (3) Stimulant abuse Current Visit: Yes Status: Acute Priority: Medium Hospital Course: Admission HPI: Admission note was completed by policy writer typist "Patient is a 75-year-old male who currently lives alone in a mobile home is has 4 kids and is a retired oracle engineer for [employer] Patient presented to the hospital yesterday with his daughter for complaints of hallucinations. According the ER report patient had stated that he had been seeing people in the house "drinking things and laying in the bed". Patient had apparently called the police several times to the house to find that nobody was there. Patient had a computed tomography scan of his head which was negative. Patient also had a UDS which was positive for marijuana and amphetamines. Patient was seen today on the unit and agreeable to speak to policy writer typist. Patient spoke about his daughter being "upset and worried at me". He claimed that she wanted him to get checked out for his hallucinations. Patient states that the police came multiple times to his house and didn't see anybody there. He states that there was "people cooking dope in the kitchen" and stated that he could actually touch them. He states that there is approximately 8 of them in the house and believes that his ex-girlfriend "probably brought them over". He states that his mood is "fine" and denies any depression or anxiety at this time. He was fairly evasive and guarded about the hallucinations and his reason for being in the hospital. He was focused on discharge. He states his appetite is fair and sleeps approximately 4 hours a night. He was alert and oriented 3 however had poor concentration during the interview." Hospital course: Upon admission to the unit patient was initially uncooperative however signed adult voluntary form. Patient was initially reluctant to take the medications however with encouragement began treatment on the unit. Patient got along well with other patients on the unit and followed unit protocol. Patient was compliant with the medications and denied any side effects throughout hospital course. Patient was started on Seroquel and titrated up to dose of 50 mg daily at bedtime for psychosis/hallucinations.. Patient spoke of his stressors and engaged in therapy both group and individual. Patient was also seen by medical team for history and physical exam. Patient had a computed tomography scan on 07/24/20 of his brain which showed cerebral atrophy and no acute intracranial abnormality. Throughout the course of the hospitalization patient gradually improved with regards to mood, anxiety, hallucinations/psychosis, sleep and returned back to baseline level functioning and insight. On the day of discharge patient denied any suicidal or homicidal ideations intent or plan denied any auditory or visual hallucinations. Patient endorsed wanting to live for his health and family. Patient denied any paranoia and did not endorse any delusions. Patient does have a significant history of substance abuse and was counseled on abstaining from all substances including alcohol and marijuana. Patient was offered however declined inpatient substance-abuse rehab. Patient was also counseled on the medications and need for regular compliance and was encouraged to follow-up with their outpatient appointment for mental health and also for primary care. Prior to discharge a family meeting will be arranged by social staff worker to answer any questions and ensure safety upon discharge. break out worker to review safety measures and ensure that guns/weapons are locked away or removed from the house. Mental status exam: General Appearance: Patient appears to be overweight, with long hair, stated age is alert, pleasant, and cooperative. Patient is in no acute distress and has improved hygiene and grooming Behavior: Patient is calmly seated without any agitated behavior. Speech: Patient's speech is fluent and nonpressured. Mood/Affect: Patient reports their mood is "better", affect is congruent and euthymic. Suicidality/Homicidality: Patient denies having any suicidal or homicidal ideation intent or plan. Perceptions: Patient denies any auditory or visual hallucinations. Though content/process: There is no evidence of any delusional thought content and thought process is linear and goal-directed. Memory and concentration: AOX3, grossly intact for the purposes of this session. Can spell "WORLD" backwards correctly. Judgment and insight: Chronically limited, improved with guarded prognosis Impression: Psychosis unspecified, rule out secondary to neurological disorder (Parkinson's or Lewy body dementia) versus substance-induced psychosis Cannabis use disorder stimulant abuse Plan: -Continue with discharge today as patient has improved and stabilized psychiatrically and is not currently an imminent threat to himself and/or others. -Continue medications: Seroquel 50 mg daily at bedtime for psychosis/hallucinations. -Patient was counseled on the need for medication compliance and appropriate follow-up at mental health and also primary care for medical issues. Patient verbalized understanding and agreed. -Social work to arrange for and conduct family meeting to ensure safety upon discharge and answer any questions/concerns. break out worker to review safety measures and ensure that guns/weapons are locked away or removed from the house. Social work also to arrange for patients follow up appointments for psychiatric care along with follow up with primary care provider. -Patient also was recommended to follow-up with a neurologist in 1-2 weeks. -Patient counseled on abstaining from recreational drugs and marijuana and alcohol. Was informed/educated on the adverse effects on their physical and mental health. Patient verbally agreed and understood. Patient was offered substance abuse treatment however declined at this time. -Patient was instructed to return to the hospital or seek immediate medical care if their psychiatric or medical symptoms do worsen or reoccur. Allergies Allergy/AdvReac Type Severity Reaction Status Date / Time No Known Allergies Allergy Verified 07/24/20 18:35 Laboratory Results WBC 10.3 k/uL (3.8-10.6) 07/24/20 16:14 RBC 5.23 m/uL (4.30-5.90) 07/24/20 16:14 Hgb 15.9 gm/dL (13.0-17.5) 07/24/20 16:14 Hct 47.4 % (39.0-53.0) 07/24/20 16:14 MCV 90.6 fL (80.0-100.0) 07/24/20 16:14 MCH 30.5 pg (25.0-35.0) 07/24/20 16:14 MCHC 33.6 g/dL (31.0-37.0) 07/24/20 16:14 RDW 12.8 % (11.5-15.5) 07/24/20 16:14 Plt Count 230 k/uL (150-450) 07/24/20 16:14 MPV 7.4 07/24/20 16:14 Neutrophils % 78 % 07/24/20 16:14 Lymphocytes % 12 % 07/24/20 16:14 Monocytes % 6 % 07/24/20 16:14 Eosinophils % 2 % 07/24/20 16:14 Basophils % 1 % 07/24/20 16:14 Neutrophils # 8.0 k/uL (1.3-7.7) H 07/24/20 16:14 Lymphocytes # 1.2 k/uL (1.0-4.8) 07/24/20 16:14 Monocytes # 0.6 k/uL (0-1.0) 07/24/20 16:14 Eosinophils # 0.2 k/uL (0-0.7) 07/24/20 16:14 Basophils # 0.1 k/uL (0-0.2) 07/24/20 16:14 PT 10.7 sec (9.0-12.0) 07/24/20 16:14 INR 1.0 (<1.2) 07/24/20 16:14 APTT 24.8 sec (22.0-30.0) 07/24/20 16:14 Sodium 140 mmol/L (137-145) 07/24/20 16:14 Potassium 3.9 mmol/L (3.5-5.1) 07/24/20 16:14 Chloride 103 mmol/L (98-107) 07/24/20 16:14 Carbon Dioxide 25 mmol/L (22-30) 07/24/20 16:14 Anion Gap 12 mmol/L 07/24/20 16:14 BUN 35 mg/dL (9-20) H 07/24/20 16:14 Creatinine 0.96 mg/dL (0.66-1.25) 07/24/20 16:14 Est GFR (CKD-EPI)AfAm >90 (>60 ml/min/1.73 sqM) 07/24/20 16:14 Est GFR (CKD-EPI)NonAf 79 (>60 ml/min/1.73 sqM) 07/24/20 16:14 Glucose 189 mg/dL (74-99) H 07/24/20 16:[address] Glu mg/dL 126 07/24/20 16:14 Hemoglobin A1c 6.0 % (4.0-6.0) 07/24/20 16:14 Plasma Lactic Acid Gold 1.7 mmol/L (0.7-2.0) 07/24/20 16:14 Calcium 9.3 mg/dL (8.4-10.2) 07/24/20 16:14 Total Bilirubin 1.0 mg/dL (0.2-1.3) 07/24/20 16:14 AST 40 U/L (17-59) 07/24/20 16:14 ALT 31 U/L (4-49) 07/24/20 16:14 Alkaline Phosphatase 60 U/L (38-126) 07/24/20 16:14 Troponin I <0.012 ng/mL (0.000-0.034) 07/24/20 16:14 Total Protein 7.6 g/dL (6.3-8.2) 07/24/20 16:14 Albumin 4.9 g/dL (3.5-5.0) 07/24/20 16:14 TSH 4.050 mIU/L (0.465-4.680) 07/24/20 16:14 Urine Color Yellow 07/24/20 17:27 Urine Appearance Clear (Clear) 07/24/20 17:27 Urine pH 5.0 (5.0-8.0) 07/24/20 17:27 Ur Specific [place] 1.031 (1.001-1.035) 07/24/20 17:27 Urine Protein Trace (Negative) H 07/24/20 17:27 Urine Glucose (UA) Negative (Negative) 07/24/20 17:27 Urine Ketones Negative (Negative) 07/24/20 17:27 Urine Blood Negative (Negative) 07/24/20 17:27 Urine Nitrite Negative (Negative) 07/24/20 17:27 Urine Bilirubin Negative (Negative) 07/24/20 17:27 Urine Urobilinogen <2.0 mg/dL (<2.0) 07/24/20 17:27 Ur Leukocyte Esterase Trace (Negative) H 07/24/20 17:27 Urine RBC 1 /hpf (0-5) 07/24/20 17:27 Urine WBC 2 /hpf (0-5) 07/24/20 17:27 Ur Squamous Epith Cells 2 /hpf (0-4) 07/24/20 17:27 Urine Bacteria Rare /hpf (None) H 07/24/20 17:27 Urine Mucus Many /hpf (None) H 07/24/20 17:27 Urine Opiates Screen Not Detected (NotDetected) 07/24/20 17:27 Ur Oxycodone Screen Not Detected (NotDetected) 07/24/20 17:27 Urine Methadone Screen Not Detected (NotDetected) 07/24/20 17:27 Ur Propoxyphene Screen Not Detected (NotDetected) 07/24/20 17:27 Ur Barbiturates Screen Not Detected (NotDetected) 07/24/20 17:27 U Tricyclic Antidepress Not Detected (NotDetected) 07/24/20 17:27 Ur Phencyclidine Scrn Not Detected (NotDetected) 07/24/20 17:27 Ur Amphetamines Screen Detected (NotDetected) H 07/24/20 17:27 U Methamphetamines Scrn Not Detected (NotDetected) 07/24/20 17:27 U Benzodiazepines Scrn Not Detected (NotDetected) 07/24/20 17:27 Urine Cocaine Screen Not Detected (NotDetected) 07/24/20 17:27 U Marijuana (THC) Screen Detected (NotDetected) H 07/24/20 17:27 Coronavirus (PCR) Not Detected (Not Detectd) 07/24/20 16:24 Vital Signs Temp 97.9 F 07/27/20 06:31 Pulse 68 07/27/20 09:07 Resp 20 07/27/20 09:07 BP 135/86 07/27/20 09:07 Pulse Ox 95 07/24/20 23:52 Patient Condition at Discharge: Stable Plan - Discharge Summary Discharge Rx Participant: No New Discharge Prescriptions: New Ipratropium-Albuterol Nebulize [Duoneb 0.5 mg-3 mg/3 ml Soln] 3 ml INHALATION RT-QID PRN ml PRN Reason: Shortness Of Breath Or Wheezing Metoprolol Tartrate [Lopressor] 25 mg PO BID tab Multivitamins, Thera [Multivitamin (formulary)] 1 each PO DAILY 30 Days tab amLODIPine [Norvasc] 10 mg PO DAILY tab QUEtiapine [SEROquel] 50 mg PO HS 30 Days tab Levothyroxine Sodium [Synthroid] 50 mcg PO DAILY@0630 tab Acetaminophen Tab [Tylenol] 650 mg PO Q4HR PRN tab PRN Reason: Pain/Discomfort Continue Cider Vinegar [Apple Cider Vinegar] 600 mg PO DAILY Discontinued amLODIPine BESYLATE 10 mg PO DAILY Prostagenix (Unknown Strength) 1 tab PO DAILY Metoprolol Tartrate [Lopressor] 25 mg PO BID Multivit-Min/Folic/Vit K/Lycop [Men's Multivitamin Tablet] 1 tab PO DAILY Garccaleb Noogia (Unknown Strength) 1 tab PO DAILY Levothyroxine Sodium [Synthroid] 50 mcg PO DAILY Discharge Medication List Cider Vinegar [Apple Cider Vinegar] 600 mg PO DAILY 07/24/20 [History] Acetaminophen Tab [Tylenol] 650 mg PO Q4HR PRN tab 07/27/20 [Rx] Ipratropium-Albuterol Nebulize [Duoneb 0.5 mg-3 mg/3 ml Soln] 3 ml INHALATION RT-QID PRN ml 07/27/20 [Rx] Levothyroxine Sodium [Synthroid] 50 mcg PO DAILY@0630 tab 07/27/20 [Rx] Metoprolol Tartrate [Lopressor] 25 mg PO BID tab 07/27/20 [Rx] Multivitamins, Thera [Multivitamin (formulary)] 1 each PO DAILY 30 Days tab 07/27/20 [Rx] QUEtiapine [SEROquel] 50 mg PO HS 30 Days tab 07/27/20 [Rx] amLODIPine [Norvasc] 10 mg PO DAILY tab 07/27/20 [Rx] Follow up Appointment(s)/Referral(s): Chastity Chapa MD [Primary Care Provider] - 1-2 days Discharge Disposition: HOME SELF-CARE
== END 2020-07-27 12:07 | disposition home or self-care (01) | DRG 885 ==
LOC: EC 15:24 → 3MHU 22:02
PROVIDERS: ADMIT Psychiatry & Neurology Psychiatry; ATTEND Psychiatry & Neurology Psychiatry
DX: F23 Brief psychotic disorder (principal); E03.9 Hypothyroidism, unspecified; F15.10 Other stimulant abuse, uncomplicated; J44.9 Chronic obstructive pulmonary disease, unspecified; F12.10 Cannabis abuse, uncomplicated; Z20.822 Contact with and (suspected) exposure to COVID-19; I10 Essential (primary) hypertension; G89.29 Other chronic pain; M54.9 Dorsalgia, unspecified; M19.90 Unspecified osteoarthritis, unspecified site; R73.9 Hyperglycemia, unspecified; F41.9 Anxiety disorder, unspecified; Z79.890 Hormone replacement therapy; Z79.899 Other long term (current) drug therapy; Z96.649 Presence of unspecified artificial hip joint; Z96.652 Presence of left artificial knee joint; Z98.1 Arthrodesis status; Z87.891 Personal history of nicotine dependence
CPT/HCPCS: 36415; 70450; 80053; 80306; 81001; 82075; 83036; 83605; 84443; 84484; 85025; 85610; 85730; 87635; 93005; 99285

== ENCOUNTER → 2020-08-16 | Outpatient (CLI) | payer MEDICARE, OTHER ==
--- NOTE | 2020-08-16 09:53 | MR ---
EXAMINATION TYPE: MR brain wo/w con DATE OF EXAM: 08/16/2020 COMPARISON: CT brain 07/24/2020 HISTORY: Auditory and visual hallucinations, memory loss TECHNIQUE: Multiplanar, multisequence images of the brain and brainstem is performed without and with IV contras t, utilizing 10 mL intravenous Gadavist . FINDINGS: Diffusion weighted images demonstrate no evidence of a recent infarct or other diffusion ab normality. Degenerative change and numerous focal areas of abnormal signal seen scattered throughout the white matter bilaterally nonspecific pattern Midline structures demonstrate normal morphology. The craniocervical junction appears within normal limits. Post contrast images demonstrate no abnormal enhancement. The dural venous sinuses appear pa tent. Changes of chronic sinusitis. Orbits are symmetric. IMPRESSION: 1. Degenerative and nonspecific white matter changes most typical of remote white matter ischemia.
--- NOTE | 2020-08-16 11:58 | XR ---
EXAMINATION TYPE: XR chest 2V DATE OF EXAM: 08/16/2020 COMPARISON: None INDICATION: Altered mental status TECHNIQUE: Frontal and lateral views of the chest are obtained. FINDINGS: The heart size is normal. The pulmonary vasculature is normal. The lungs are clear. IMPRESSION: 1. No acute pulmonary process.
== END | disposition home or self-care (01) ==
LOC: RADMRIMAIN 08:16
PROVIDERS: ATTEND Family Medicine
DX: R90.82 White matter disease, unspecified (principal); R41.82 Altered mental status, unspecified
CPT/HCPCS: 71046; 70553; A9585